=== PATIENT | female | born 1995 | race Caucasian/White ===

== ENCOUNTER 2017-10-15 18:18 | Emergency (ER) | payer OTHER ==
--- NOTE | 2017-10-15 18:35 | ERPHSYRPT ---
- History of Present Illness Source: patient Exam Limitations: no limitations Patient Subjective Stated Complaint: pt reports ari 20 min ago she began feeling sob and like her heart was racing-states she broke out in a sweat- denies pain or pressure Triage Nursing Assessment: pt pale flushed warm and dry upon arrival-lungs clear and equal bilaterally-right radial pulse regular and strong Hx Tetanus, Diphtheria Vaccination/Date Given: Yes Hx Influenza Vaccination/Date Given: Yes Hx Pneumococcal Vaccination/Date Given: No Immunizations Up to Date: Yes <DELMY DICKSON - Last Filed: 10/15/17 18:32> <OLVIN KUNZ - Last Filed: 10/15/17 22:19> - History of Present Illness Time Seen by Provider: 10/15/17 18:32 Physician History: mild to mod sudden onset palpitations today while driving, better now, no injury , no chest pain, mild shortness of breath, no fever, hx anxiety, does not smoke or do illicit drugs (DELMY DICKSON) Allergies/Adverse Reactions: hpv Allergy (Mild, Uncoded 10/15/17 18:32) the vaccine Home Medications: No Reportable Medications [No Reported Medications] 10/15/17 [History] - Review of Systems Constitutional: No Fever Eyes: No Vision Changes Ears, Nose, & Throat: No Hoarse Respiratory: Dyspnea, No Cyanosis Cardiac: Palpitations, No Chest Pain, No Syncope Abdominal/Gastrointestinal: No Abdominal Pain, No Vomiting Musculoskeletal: No Back Pain Skin: No Rash Neurological: No Dizziness <DELMY DICKSON - Last Filed: 10/15/17 18:32> - Past Medical History Pertinent Past Medical History: Yes Psycho-Social History: Anxiety Other Medical History: right arm tumor - Past Surgical History Past Surgical History: No - Social History Smoking Status: Never smoker Exposure to second hand smoke: No Drug Use: none Patient Lives Alone: No - Female History Hx Last Menstrual Period: last week Hx Now: No <DELMY DICKSON - Last Filed: 10/15/17 18:32> - Physical Exam General Appearance: no apparent distress Eye Exam: PERRL/EOMI, eyes nml inspection Ears, Nose, Throat Exam: pharynx normal, moist mucous membranes Neck Exam: normal inspection Respiratory Exam: normal breath sounds, lungs clear, No respiratory distress Cardiovascular Exam: regular rate/rhythm Gastrointestinal/Abdomen Exam: soft, No tenderness Extremity Exam: normal inspection, normal range of motion Neurologic Exam: alert, oriented x 3, cooperative Skin Exam: warm, dry SpO2: 100 Oxygen Delivery: Room Air <DELMY DICKSON - Last Filed: 10/15/17 18:32> - Nursing Vital Signs Nursing Vital Signs: Initial Vital Signs Pulse Rate 90 10/15/17 18:26 Pain Scale Pain Intensity 0 - Course Nursing assessment & vital signs reviewed: Yes EKG Interpreted by Me: RATE (86/min), NORMAL AXIS, NORMAL INTERVALS, Non- specific ST Changes, Other (repeat Ek:37 PM, unchanged.) - Radiology Exams Chest X-ray Interpretation: Interpreted by me, Negative <OLVIN KUNZ - Last Filed: 10/15/17 22:19> Ordered Tests: Active Orders 24 hr Category Date Time Status Terminal Worker STAT Care 10/15/17 18:36 Active EKG-ER Only STAT Care 10/15/17 18:35 Active EKG-ER Only STAT Care 10/15/17 21:11 Active IV Insertion STAT Care 10/15/17 18:35 Active CHEST 1 VIEW (PORTABLE) Stat Exams 10/15/17 18:35 Taken BNP [NT PRO BNP] Stat Lab 10/15/17 19:34 Completed CBC W DIFF Stat Lab 10/15/17 18:35 Completed CMP Stat Lab 10/15/17 Completed D-DIMER QUANTITATION Stat Lab 10/15/17 18:35 Completed HCG QUALITATIVE,SERUM Stat Lab 10/15/17 19:00 Completed T4 (Thyroxine) Stat Lab 10/15/17 Completed TROPONIN Q3H Lab 10/15/17 Completed TROPONIN Q3H Lab 10/15/17 21:45 Completed TROPONIN Q3H Lab 10/16/17 00:45 Ordered TROPONIN Q3H Lab 10/16/17 03:45 Ordered TROPONIN Q3H Lab 10/16/17 06:45 Ordered Urine Triage Profile Stat Lab 10/15/17 Completed Lab/Rad Data: Laboratory Result Diagrams 10/15/17 18:35 10/15/17 Unknown Laboratory Results 10/15/17 10/15/17 10/15/17 Range/Units Unknown Unknown Unknown WBC (4.0-10.5) K/mm3 RBC (4.1-5.4) M/mm3 Hgb (12.0-16.0) gm/dl Hct (35-47) % MCV (78-100) fl MCH (26-32) pg MCHC (32-36) g/dl RDW (11.5-14.0) % Plt Count (150-450) K/mm3 MPV (6-9.5) fl Gran % (36.0-66.0) % Eos # (Auto) (0-0.5) Absolute Lymphs (auto) (1.0-4.6) Absolute Monos (auto) (0.0-1.3) Lymphocytes % (24.0-44.0) % Monocytes % (0.0-12.0) % Eosinophils % (0.00-5.0) % Basophils % (0.0-0.4) % Absolute Granulocytes (1.4-6.9) Basophils # (0-0.4) D-Dimer (215-500) ng/mL Sodium (137-145) mmol/L Potassium (3.5-5.1) mmol/L Chloride (98-107) mmol/L Carbon Dioxide (22-30) mmol/L Anion Gap (5-15) MEQ/L BUN (7-17) mg/dL Creatinine (0.52-1.04) mg/dL Estimated GFR ML/MIN Glucose (74-106) mg/dL Calcium (8.4-10.2) mg/dL Total Bilirubin (0.2-1.3) mg/dL AST (14-36) U/L ALT (0-35) U/L Alkaline Phosphatase (38-126) U/L Troponin I < 0.012 (0.000-0.034) ng/mL NT-Pro-B Natriuret Pep (0-450) pg/mL Serum Total Protein (6.3-8.2) g/dL Albumin (3.5-5.0) g/dL Thyroxine (T4) 9.16 (5.53-10.96) ug/dL Serum , Qual (Negative) Urine Opiates Level NEGATIVE (NEGATIVE) Ur Methadone NEGATIVE (NEGATIVE) Urine Barbiturates NEGATIVE (NEGATIVE) Ur Phencyclidine (PCP) NEGATIVE (NEGATIVE) Urine Amphetamine NEGATIVE (NEGATIVE) U Benzodiazepine Level NEGATIVE (NEGATIVE) Urine Cocaine NEGATIVE (NEGATIVE) Urine Marijuana (THC) NEGATIVE (NEGATIVE) 10/15/17 10/15/17 10/15/17 Range/Units Unknown 21:45 19:34 WBC (4.0-10.5) K/mm3 RBC (4.1-5.4) M/mm3 Hgb (12.0-16.0) gm/dl Hct (35-47) % MCV (78-100) fl MCH (26-32) pg MCHC (32-36) g/dl RDW (11.5-14.0) % Plt Count (150-450) K/mm3 MPV (6-9.5) fl Gran % (36.0-66.0) % Eos # (Auto) (0-0.5) Absolute Lymphs (auto) (1.0-4.6) Absolute Monos (auto) (0.0-1.3) Lymphocytes % (24.0-44.0) % Monocytes % (0.0-12.0) % Eosinophils % (0.00-5.0) % Basophils % (0.0-0.4) % Absolute Granulocytes (1.4-6.9) Basophils # (0-0.4) D-Dimer (215-500) ng/mL Sodium 139 (137-145) mmol/L Potassium 3.4 L (3.5-5.1) mmol/L Chloride 105 (98-107) mmol/L Carbon Dioxide 24 (22-30) mmol/L Anion Gap 13.8 (5-15) MEQ/L BUN 12 (7-17) mg/dL Creatinine 0.63 (0.52-1.04) mg/dL Estimated GFR > 60.0 ML/MIN Glucose 121 H (74-106) mg/dL Calcium 9.3 (8.4-10.2) mg/dL Total Bilirubin 0.60 (0.2-1.3) mg/dL AST 21 (14-36) U/L ALT 15 (0-35) U/L Alkaline Phosphatase 49 (38-126) U/L Troponin I < 0.012 (0.000-0.034) ng/mL NT-Pro-B Natriuret Pep 36.8 (0-450) pg/mL Serum Total Protein 7.2 (6.3-8.2) g/dL Albumin 4.5 (3.5-5.0) g/dL Thyroxine (T4) (5.53-10.96) ug/dL Serum , Qual (Negative) Urine Opiates Level (NEGATIVE) Ur Methadone (NEGATIVE) Urine Barbiturates (NEGATIVE) Ur Phencyclidine (PCP) (NEGATIVE) Urine Amphetamine (NEGATIVE) U Benzodiazepine Level (NEGATIVE) Urine Cocaine (NEGATIVE) Urine Marijuana (THC) (NEGATIVE) 10/15/17 10/15/17 10/15/17 Range/Units 19:00 18:35 18:35 WBC 5.3 (4.0-10.5) K/mm3 RBC 4.37 (4.1-5.4) M/mm3 Hgb 12.8 (12.0-16.0) gm/dl Hct 37.5 (35-47) % MCV 85.8 (78-100) fl MCH 29.3 (26-32) pg MCHC 34.1 (32-36) g/dl RDW 11.9 (11.5-14.0) % Plt Count 163 (150-450) K/mm3 MPV 9.8 H (6-9.5) fl Gran % 57.9 (36.0-66.0) % Eos # (Auto) 0.09 (0-0.5) Absolute Lymphs (auto) 1.78 (1.0-4.6) Absolute Monos (auto) 0.34 (0.0-1.3) Lymphocytes % 33.4 (24.0-44.0) % Monocytes % 6.4 (0.0-12.0) % Eosinophils % 1.7 (0.00-5.0) % Basophils % 0.6 (0.0-0.4) % Absolute Granulocytes 3.09 (1.4-6.9) Basophils # 0.03 (0-0.4) D-Dimer 399 (215-500) ng/mL Sodium (137-145) mmol/L Potassium (3.5-5.1) mmol/L Chloride (98-107) mmol/L Carbon Dioxide (22-30) mmol/L Anion Gap (5-15) MEQ/L BUN (7-17) mg/dL Creatinine (0.52-1.04) mg/dL Estimated GFR ML/MIN Glucose (74-106) mg/dL Calcium (8.4-10.2) mg/dL Total Bilirubin (0.2-1.3) mg/dL AST (14-36) U/L ALT (0-35) U/L Alkaline Phosphatase (38-126) U/L Troponin I (0.000-0.034) ng/mL NT-Pro-B Natriuret Pep (0-450) pg/mL Serum Total Protein (6.3-8.2) g/dL Albumin (3.5-5.0) g/dL Thyroxine (T4) (5.53-10.96) ug/dL Serum , Qual NEGATIVE (Negative) Urine Opiates Level (NEGATIVE) Ur Methadone (NEGATIVE) Urine Barbiturates (NEGATIVE) Ur Phencyclidine (PCP) (NEGATIVE) Urine Amphetamine (NEGATIVE) U Benzodiazepine Level (NEGATIVE) Urine Cocaine (NEGATIVE) Urine Marijuana (THC) (NEGATIVE) <DELMY DICKSON - Last Filed: 10/15/17 18:32> - Progress Progress: improved Counseled pt/family regarding: lab results, diagnosis, need for follow-up, rad results <OLVIN KUNZ - Last Filed: 10/15/17 22:19> - Progress Progress Note: 10/15/17 18:[address] Kunz at 19:00 (DELMY DICKSON) 10/15/17 22:17 Repeat troponin is negative, patient has been asymptomatic, no chest pain, dizziness, or SOB. I discussed our findings with her, she was advised to follow up with a local primary care physician next week, or return if any changes, severe chest pain, SOB, dizziness, or palpitations. (OLVIN KUNZ) <DELMY DICKSON - Last Filed: 10/15/17 18:32> - Departure Time of Disposition: 22:18 Departure Disposition: Home Critical Care Time: No <OLVIN KUNZ - Last Filed: 10/15/17 22:19> - Departure Clinical Impression: Palpitations Condition: Stable Referrals: DOCTOR,NO FAMILY [Primary Care Provider] - Instructions: Palpitations (DC) Additional Instructions: Rest x 1-2 days, follow up with primary care physician next week, return if severe shortness of breath, chest pain , palpitations, or dizziness!
[2017-10-15 18:49] LABS: BASOPHIL % 0.6 % (0.0-0.4); Basophil (Absolute #) 0.03 (0-0.4); Eosinophil % 1.7 % (0.00-5.0); Eosinophil (Absolute #) 0.09 (0-0.5); Granulocyte Absolute (ANC) 3.09 (1.4-6.9); Granulocytes % 57.9 % (36.0-66.0); Hematocrit 37.5 % (35-47); Hemoglobin 12.8 gm/dl (12.0-16.0); Lymphocyte (Absolute #) 1.78 (1.0-4.6); Lymphocytes % 33.4 % (24.0-44.0); Mean Cell Volume 85.8 fl (78-100); Mean Corpuscular Hemoglobin 29.3 pg (26-32); Mean Corpuscular Hgb Concent. 34.1 g/dl (32-36); Mean Platelet Volume 9.8 fl (6-9.5); Monocyte (Absolute #) 0.34 (0.0-1.3); Monocytes % 6.4 % (0.0-12.0); Platelet Count 163 K/mm3 (150-450); Red Blood Count 4.37 M/mm3 (4.1-5.4); Red Cell Distribution Width 11.9 % (11.5-14.0); White Blood Count 5.3 K/mm3 (4.0-10.5)
[2017-10-15 19:06] LABS: Amphetamine,Urine NEGATIVE (NEGATIVE); Barbiturate,Urine NEGATIVE (NEGATIVE); Benzodiazepine,Urine NEGATIVE (NEGATIVE); Cocaine,Urine NEGATIVE (NEGATIVE); Methadone,Urine NEGATIVE (NEGATIVE); Opiate,Urine NEGATIVE (NEGATIVE); PCP,Urine NEGATIVE (NEGATIVE); THC,Urine NEGATIVE (NEGATIVE)
[2017-10-15 19:15] VITALS: O2SAT 99
[2017-10-15 19:20] LABS: ALBUMIN 4.5 g/dL (3.5-5.0); ALKALINE PHOSPHATASE 49 U/L (38-126); ANION GAP 13.8 MEQ/L (5-15); BLOOD UREA NITROGEN 12 mg/dL (7-17); CHLORIDE 105 mmol/L (98-107); Calcium 9.3 mg/dL (8.4-10.2); Carbon Dioxide 24 mmol/L (22-30); Creatinine 1 0.63 mg/dL (0.52-1.04); Glucose 121 mg/dL (74-106); Potassium 3.4 mmol/L (3.5-5.1); SGOT/AST 21 U/L (14-36); SGPT/ALT 15 U/L (0-35); SODIUM 139 mmol/L (137-145); Total Protein 7.2 g/dL (6.3-8.2)
[2017-10-15 23:11] VITALS: BP 112/66; PULSE 74
--- NOTE | 2017-10-16 09:52 | XRAY ---
Indication: Palpitations. Comparison: None Portable chest demonstrates normal heart, lungs, and bony thorax with anatomic variant for azygos lobe.
== END 2017-10-15 22:52 | disposition home or self-care (01) ==
LOC: ED 18:18
DX: R00.2 Palpitations (principal); R06.00 Dyspnea, unspecified
CPT/HCPCS: 36000; 36415; 71045; 80053; 80307; 83880; 84436; 84484; 84703; 85025; 85379; 93005; 93041; 99284